=== PATIENT | male | born 1950 | race Caucasian/White ===

== ENCOUNTER → 2024-08-01 | Outpatient (CLI) | payer OTHER, SELFPAY ==
[2024-08-01 08:00] LABS: Collection Type, Urine Clean Catch
[2024-08-01 08:34] LABS: Basophils # (Auto) 0.1 Thou/mm3 (0.0-0.2); Basophils % (Auto) 1 % (0-2.5); Eosinophils # (Auto) 0.4 Thou/mm3 (0.0-0.5); Eosinophils % (Auto) 6 % (0-10); Hematocrit 36.7 % (41.0-53.0); Immature Granulocytes % (Auto) 0 % (0-0); Immature Granulocytes Auto 0.03 Thou/mm3 (0.00-0.00); Lymphocytes # (Auto) 1.2 Thou/mm3 (1.0-4.8); Lymphocytes % (Auto) 18 % (10-50); Mean Corpuscular HGB Conc 32.7 g/dl (31.0-37.0); Mean Corpuscular Hemoglobin 27.5 pg (25.0-35.0); Mean Corpuscular Volume 84 fL (80-100); Monocytes # (Auto) 0.5 Thou/mm3 (0.0-0.8); Monocytes % (Auto) 8 % (0-12); Neutrophils # (Auto) 4.7 Thou/mm3 (1.8-7.7); Neutrophils % (Auto) 68 % (37-80); Nucleated Red Blood Cell % 0 /100 WBC (0); Platelet Count 103 Thou/mm3 (140-440); RDW Standard Deviation 42.6 fL (35.1-43.9); Red Blood Count 4.36 Miln/mm3 (4.50-5.90)
[2024-08-01 08:39] LABS: Bilirubin,Urine Negative (Negative); Blood,Urine Trace (Negative); Clarity,Urine Clear (Clear/Hazy); Color,Urine Colorless (Lt Yel-Yel); Glucose, Urine Negative (Negative); Ketones,Urine Negative (Negative); Leukocyte Esterase,Urine Negative (Negative); Nitrite,Urine Negative (Negative); PH,Urine 6.5 (5.0-7.0); Protein,Urine Trace (Neg - Trace); RBC,Urine 13 /hpf (0-3); Specific Gravity,Urine 1.011 (1.001-1.035); Squamous Epithelial Cell,Urine < 1 /hpf (0-5); Urobilinogen,Urine Negative mg/dL (0.0-1.0); WBC,Urine 4 /hpf (0-5)
[2024-08-01 08:43] LABS: Creatinine,Random Urine 46 mg/dL (30-125); Protein Total, Random Urine 24 mg/dL (1-14)
[2024-08-01 09:03] LABS: Albumin, Serum 4.3 gm/dL (3.4-4.8); Anion Gap 11 (7-16); BUN/Creatinine Ratio 18 Ratio (12-20); Blood Urea Nitrogen 38 mg/dL (9-23); Chloride 106 mMol/L (98-107); Creatinine (Component) 2.1 mg/dL (0.6-1.3); Glucose 177 mg/dL (74-106); Osmolality,Calculated 284 (275-295); Phosphorous 4.2 mg/dL (2.4-5.1); Potassium 4.8 mMol/L (3.4-5.1); Sodium 136 mMol/L (136-145); eGFR 33 See Note
[2024-08-01 09:14] LABS: Parathyroid Hormone Intact 135.2 pg/ml (18.5-88.0)
[2024-08-01 09:37] LABS: Hepatitis A Antibody IgM Non Reactive (Non React); Hepatitis B Core Antibody IgM Non Reactive (Non React); Hepatitis B Surface Ab NonReact(Not Immune) (Immune); Hepatitis B Surface Antigen Non Reactive (Non React); Hepatitis C Antibody Non Reactive (Non React); Vitamin D 25 Hydroxy Total 29.5 ng/mL (7.3-40.2)
== END | disposition home or self-care (01) ==
PROVIDERS: PCP Family Medicine; Referring Provider Internal Medicine; Visit Provider Internal Medicine
DX: I12.9 Hypertensive chronic kidney disease with stage 1 through stage 4 chronic kidney disease, or unspecified chronic kidney disease (principal); E11.22 Type 2 diabetes mellitus with diabetic chronic kidney disease; N18.32 Chronic kidney disease, stage 3b; E11.65 Type 2 diabetes mellitus with hyperglycemia
CPT/HCPCS: 36415; 80069; 80074; 81001; 82306; 82570; 83970; 84156; 85025; 86706; 87086

== ENCOUNTER → 2024-08-07 | Outpatient (CLI) | payer OTHER, SELFPAY ==
--- NOTE | 2024-08-07 10:30 | XR_ITS ---
Examination: Abdomen sonogram, complete Date and time of exam: August 07, 2024 1034 hours INDICATIONS: Generalized abdominal pain beginning 3 months ago. Technique: Multiple real-time grayscale transabdominal sonographic images of the abdomen have been obtained. Findings: Normal gallbladder Normal common bile duct 0.3 cm Pancreatic head 2.6 cm Aorta not enlarged Liver 17 cm fatty infiltration smooth contour no focal liver lesions Normal hepatopedal portal venous flow Patent IVC Right kidney 10.0 x 5.2 x 4.7 cm renal cortex 1.2 cm Left kidney 11.1 x 4.5 x 5.5 cm cortex 1.2 cm No hydronephrosis Moderate bilateral renal parenchymal scar formation Spleen 11.4 cm IMPRESSION: Normal gallbladder Normal common bile duct Mild hepatomegaly fatty liver Bilateral renal cortical thinning Moderate bilateral renal parenchymal scar formation
== END | disposition home or self-care (01) ==
PROVIDERS: PCP Family Medicine; Referring Provider Family Medicine; Visit Provider Family Medicine
DX: K76.0 Fatty (change of) liver, not elsewhere classified (principal); N28.89 Other specified disorders of kidney and ureter
CPT/HCPCS: 76700

== ENCOUNTER → 2024-08-23 | Outpatient (CLI) | payer OTHER, SELFPAY ==
[2024-08-23 13:26] LABS: Albumin, Serum 4.6 gm/dL (3.4-4.8); Anion Gap 9 (7-16); BUN/Creatinine Ratio 16 Ratio (12-20); Blood Urea Nitrogen 31 mg/dL (9-23); Calcium 9.3 mg/dL (8.3-10.6); Calcium (Corrected) 9.3 mg/dL (8.5-10.1); Carbon Dioxide 20.6 mMol/L (20.0-31.0); Chloride 110 mMol/L (98-107); Creatinine (Component) 1.9 mg/dL (0.6-1.3); Glucose 115 mg/dL (74-106); Osmolality,Calculated 286 (275-295); Sodium 140 mMol/L (136-145); eGFR 37 See Note
== END | disposition home or self-care (01) ==
LOC: COPL 12:07
PROVIDERS: PCP Family Medicine; Referring Provider Internal Medicine; Visit Provider Internal Medicine
DX: I12.9 Hypertensive chronic kidney disease with stage 1 through stage 4 chronic kidney disease, or unspecified chronic kidney disease (principal); E11.22 Type 2 diabetes mellitus with diabetic chronic kidney disease; N18.32 Chronic kidney disease, stage 3b
CPT/HCPCS: 36415; 80069

== ENCOUNTER → 2024-10-17 | Outpatient (CLI) | payer OTHER, SELFPAY ==
[2024-10-17 15:25] LABS: Basophils % (Auto) 1 % (0-2.5); Eosinophils # (Auto) 0.4 Thou/mm3 (0.0-0.5); Eosinophils % (Auto) 7 % (0-10); Hematocrit 38.3 % (41.0-53.0); Hemoglobin 12.8 g/dL (13.5-16.0); Immature Granulocytes % (Auto) 0 % (0-0); Immature Granulocytes Auto 0.02 Thou/mm3 (0.00-0.00); Lymphocytes % (Auto) 18 % (10-50); Mean Corpuscular HGB Conc 33.4 g/dl (31.0-37.0); Mean Corpuscular Hemoglobin 27.6 pg (25.0-35.0); Mean Corpuscular Volume 83 fL (80-100); Monocytes # (Auto) 0.3 Thou/mm3 (0.0-0.8); Monocytes % (Auto) 6 % (0-12); Neutrophils # (Auto) 3.9 Thou/mm3 (1.8-7.7); Neutrophils % (Auto) 69 % (37-80); Nucleated Red Blood Cell % 0 /100 WBC (0); Platelet Count 113 Thou/mm3 (140-440); RDW Standard Deviation 44.2 fL (35.1-43.9); Red Blood Count 4.64 Miln/mm3 (4.50-5.90); White Blood Count 5.7 Thou/mm3 (3.8-10.6)
[2024-10-17 16:42] LABS: Albumin, Serum 4.3 gm/dL (3.4-4.8); Anion Gap 12 (7-16); BUN/Creatinine Ratio 11 Ratio (12-20); Blood Urea Nitrogen 19 mg/dL (9-23); Calcium 9.3 mg/dL (8.3-10.6); Calcium (Corrected) 9.3 mg/dL (8.5-10.1); Carbon Dioxide 20.4 mMol/L (20.0-31.0); Chloride 106 mMol/L (98-107); Creatinine (Component) 1.7 mg/dL (0.6-1.3); Glucose 90 mg/dL (74-106); Osmolality,Calculated 277 (275-295); Phosphorous 4.1 mg/dL (2.4-5.1); Potassium 4.8 mMol/L (3.4-5.1); Sodium 138 mMol/L (136-145); eGFR 42 See Note
== END | disposition home or self-care (01) ==
LOC: COPL 14:45
PROVIDERS: PCP Family Medicine; Referring Provider Internal Medicine; Visit Provider Internal Medicine
DX: I12.9 Hypertensive chronic kidney disease with stage 1 through stage 4 chronic kidney disease, or unspecified chronic kidney disease (principal); E11.22 Type 2 diabetes mellitus with diabetic chronic kidney disease; N18.32 Chronic kidney disease, stage 3b; E11.65 Type 2 diabetes mellitus with hyperglycemia; R80.9 Proteinuria, unspecified; E55.9 Vitamin D deficiency, unspecified
CPT/HCPCS: 36415; 80069; 85025

== ENCOUNTER → 2024-12-06 | Outpatient (CLI) | payer OTHER, SELFPAY ==
[2024-12-06 14:24] LABS: Glucose Estimated Average 108 mg/dL (80-131); Hemoglobin A1C 5.4 % Hgb (4.8-6.0)
[2024-12-06 14:28] LABS: Alanine Aminotransferase 18 U/L (10-49); Albumin, Serum 4.5 gm/dL (3.4-4.8); Alkaline Phosphatase 59 U/L (46-116); Anion Gap 9 (7-16); Aspartate Amino Transferase 20 U/L (0-34); BUN/Creatinine Ratio 14 Ratio (12-20); Bilirubin,Total 0.6 mg/dL (0.3-1.2); Blood Urea Nitrogen 27 mg/dL (9-23); Carbon Dioxide 21.1 mMol/L (20.0-31.0); Chloride 108 mMol/L (98-107); Creatinine (Component) 1.9 mg/dL (0.6-1.3); Globulin 2.3 gm/dL (2.3-3.5); Glucose 107 mg/dL (74-106); Osmolality,Calculated 280 (275-295); Potassium 4.5 mMol/L (3.4-5.1); Sodium 138 mMol/L (136-145); Total Protein 6.8 gm/dL (5.7-8.2); eGFR 37 See Note
== END | disposition home or self-care (01) ==
LOC: COPL 12:56
PROVIDERS: PCP Family Medicine; Referring Provider Family Medicine; Visit Provider Family Medicine
DX: E11.65 Type 2 diabetes mellitus with hyperglycemia (principal); I10 Essential (primary) hypertension
CPT/HCPCS: 36415; 80053; 83036

== ENCOUNTER → 2024-12-16 | Outpatient (CLI) | payer OTHER, SELFPAY ==
[2024-12-16 11:43] LABS: Alanine Aminotransferase 22 U/L (10-49); Albumin, Serum 4.2 gm/dL (3.4-4.8); Alkaline Phosphatase 62 U/L (46-116); Aspartate Amino Transferase 24 U/L (0-34); Bilirubin,Direct 0.2 mg/dL (0.0-0.3); Bilirubin,Total 0.4 mg/dL (0.3-1.2); Cardiac Risk Estimate 2.8 RATIO (4.0-6.7); Cholesterol 98 mg/dL (132-200); HDL Cholesterol 35 mg/dL (40-60); LDL Cholesterol,Calculated 34 mg/dL (0-130); Total Protein 6.2 gm/dL (5.7-8.2); Triglycerides 143 mg/dL (30-150)
== END | disposition home or self-care (01) ==
LOC: COPL 10:28
PROVIDERS: PCP Family Medicine; Referring Provider Internal Medicine Cardiovascular Disease; Visit Provider Internal Medicine Cardiovascular Disease
DX: E78.00 Pure hypercholesterolemia, unspecified (principal)
CPT/HCPCS: 36415; 80061; 80076

== ENCOUNTER → 2024-12-25 | Outpatient (CLI) | payer OTHER, SELFPAY ==
[2024-12-25 10:57] LABS: Albumin, Serum 4.2 gm/dL (3.4-4.8); Anion Gap 11 (7-16); BUN/Creatinine Ratio 11 Ratio (12-20); Blood Urea Nitrogen 20 mg/dL (9-23); Carbon Dioxide 21.8 mMol/L (20.0-31.0); Chloride 108 mMol/L (98-107); Creatinine (Component) 1.8 mg/dL (0.6-1.3); Glucose 110 mg/dL (74-106); Osmolality,Calculated 284 (275-295); Phosphorous 3.9 mg/dL (2.4-5.1); Potassium 4.6 mMol/L (3.4-5.1); Sodium 141 mMol/L (136-145); eGFR 39 See Note
== END | disposition home or self-care (01) ==
LOC: COPL 09:58
PROVIDERS: PCP Family Medicine; Referring Provider Internal Medicine; Visit Provider Internal Medicine
DX: I12.9 Hypertensive chronic kidney disease with stage 1 through stage 4 chronic kidney disease, or unspecified chronic kidney disease (principal); E11.22 Type 2 diabetes mellitus with diabetic chronic kidney disease; N18.32 Chronic kidney disease, stage 3b; E11.65 Type 2 diabetes mellitus with hyperglycemia; R80.9 Proteinuria, unspecified; E55.9 Vitamin D deficiency, unspecified
CPT/HCPCS: 36415; 80069

== ENCOUNTER → 2024-12-27 | Outpatient (CLI) | payer OTHER, SELFPAY ==
[2024-12-27 14:19] LABS: Collection Type, Urine Clean Catch
[2024-12-27 16:23] LABS: Bilirubin,Urine Negative (Negative); Blood,Urine Negative (Negative); Clarity,Urine Clear (Clear/Hazy); Color,Urine Lt-Yellow (Lt Yel-Yel); Glucose, Urine Negative (Negative); Ketones,Urine Trace (Negative); Leukocyte Esterase,Urine Negative (Negative); Nitrite,Urine Negative (Negative); Protein,Urine Trace (Neg - Trace); RBC,Urine 1 /hpf (0-3); Specific Gravity,Urine 1.015 (1.001-1.035); Squamous Epithelial Cell,Urine 2 /hpf (0-5); Urobilinogen,Urine Negative mg/dL (0.0-1.0); WBC,Urine 2 /hpf (0-5)
== END | disposition home or self-care (01) ==
LOC: SLDO 13:58
PROVIDERS: Referring Provider Family Medicine; Visit Provider Family Medicine
DX: N39.0 Urinary tract infection, site not specified (principal)
CPT/HCPCS: 81001; 87086

== ENCOUNTER 2025-01-07 10:25 | Emergency (ER) | payer OTHER, SELFPAY ==
[2025-01-07] VITALS (8 sets, daily range): BP systolic 94–145; BP diastolic 58–105; PULSE 66–88; RESP 12–20; TEMP 36.6–36.9; O2SAT 94–98; BMI 29.6; BMI 28.8
--- NOTE | 2025-01-07 10:37 | PD.EDRME ---
Rapid Medical Screening Exam [facility] Arrival date/time: 01/07/25 10:25 74-year-old male with a history of BPH, presents to the emergency room with a chief complaint of blood in the urine. Patient states he self catheterized himself last night due to urinary retention and since then has been bleeding from the urethra. I have greeted and performed a focused initial assessment of this patient. A comprehensive ED assessment and evaluation of the patient, analysis of all test results, and completion of the medical decision making process will be conducted by additional ED providers. Chief Complaint: Urogenital-Male Vital signs: Vital Signs Temperature 98 F 01/07/25 10:33 Pulse Rate 88 01/07/25 10:33 Respiratory Rate 18 01/07/25 10:33 Blood Pressure 94/58 L 01/07/25 10:33 Pulse Oximetry (%) 97 01/07/25 10:33 Oxygen Delivery Method Room Air 01/07/25 10:33 Vital signs reviewed by provider: Yes
--- NOTE | 2025-01-07 11:06 | EDNOTE_ITS ---
<Statement entered by Jeane Tripp MD - 01/08/25 18:36> As co-signing physician, I was present and available for consult prn. I concur with the plan and care as documented by the midlevel provider. ED Male Genitalurinary RME/HPI General Chief complaint: Urogenital-Male Stated complaint: PEEING BLOOD AFTER SELF CATH TODAY AT 0830 Time Seen by Provider: 01/07/25 11:06 Arrival date/time: 01/07/25 10:25 Limitations: no limitations RME / HPI RME / HPI Narrative: 01/07/25 10:25 74-year-old male with a history of BPH, presents to the emergency room with a chief complaint of blood in the urine. Patient states he self catheterized himself last night due to urinary retention and since then has been bleeding from the urethra. I have greeted and performed a focused initial assessment of this patient. A comprehensive ED assessment and evaluation of the patient, analysis of all test results, and completion of the medical decision making process will be conducted by additional ED providers. 74-year-old male with a history of BPH, presents to the emergency room with a chief complaint of blood in the urine. Patient states he self catheterized himself last night due to urinary retention and since then has been bleeding from the urethra. Sees Dr. Harris for similar. Has not had surgery with him or procedures since 2019. Unable to follow-up with him until April 03, 2025. hx of urethral stricture in past. Thinks the excessive bleeding may be from blood thinner use. Patient is on Plavix and aspirin. He is not on Coumadin Xarelto or Eliquis. On antiplatelet medication for history of coronary stents. Does not feel fever states maybe slight chills. Was seen by PCP 2 weeks ago started on Cipro prophylactically but a week ago had repeat UA and was discontinued off Cipro. States was told there was no bacteria in his bladder. 4 years ago required a suprapubic cath. Thinks he may need placement of a suprapubic cath. At this time takes Flomax 0.4 mg once a day. Related Data Home Medications ?Medication ?Instructions ?Recorded ?Confirmed metformin 500 mg tablet 500 mg PO BID #0 tabs 08/28/18 (Glucophage) fenofibrate 160 mg tablet (Lofibra) 160 mg PO QDAY #0 tabs 02/09/16 08/28/18 vitamin E 268 mg (400 unit) capsule 400 unit PO QDAY # 0 caps 02/09/16 08/28/18 cholecalciferol (vitamin D3) 10 400 unit PO QDAY #0 ta bs 02/15/17 08/28/18 mcg (400 unit) tablet (Vitamin D3) ascorbic acid (vitamin C) 1,000 mg 1,000 mg PO Q12H 08/28/18 tablet,extended release (Vitamin C ER) ascorbic acid 125 mg-collagen, 4 cap PO BID 09/12/17 0 08/28/18 hydrolyzed 740 mg capsule (Collagen Plus Vitamin C) estradiol 2 mg tablet 2 tab PO QDAY 09/12/1708/28 omega-3 360 jh-xae-qms-fish oil 2 cap PO BID 09/12/17 08/28/18 1,200 mg capsule,delayed release (Fish Oil) Previous Rx's ?Medication ?Instructions ?Recorded [place] 7.5 mg-325 mg tablet 1 tab PO Q6H PRN pain #20 t abs 09/13/17 (hydrocodone-acetaminophen) dexamethasone 6 mg tablet 6 mg PO QDAY #10 tabs promethazine-DM 6.25 mg-15 mg/5 mL 5 ml PO Q4H PRN cou gh #473 mL 03/18/21 oral syrup ticagrelor 90 mg tablet (Brilinta) 90 mg PO BID #30 ta bs 08/31/22 Allergies Allergy/AdvReac Type Severity Reaction Status Date / Time erythromycin base Allergy Severe HIVES, Verified 01/07/25 10:28 JOINT SWELLING Review of Systems Review of Systems Systems Reviewed: All systems reviewed, normal except as documented Constitutional Constitutional: Denies fever(s) Gastrointestinal Gastrointestinal: Reports as per HPI Genitourinary Genitourinary: Reports as per HPI Musculoskeletal Musculoskeletal: Reports as per HPI ED Exam General Limitations: Present no limitations General appearance: Present alert and in no apparent distress Head Head exam: Present atraumatic Eye Eye exam: Present normal appearance, PERRL and EOMI ENT ENT exam: Present normal exam, normal oropharynx and mucous membranes moist Neck Neck exam: Present normal inspection, full ROM and trachea midline Chest Chest inspection: Present normal inspection and symmetric chest wall rise Respiratory Respiratory exam: Present normal lung sounds bilaterally Cardiovascular Cardiovascular exam: Present regular rate, normal rhythm and normal heart sounds Abdominal Exam Abdominal exam: Present soft, tenderness (suprapubic area) and normal bowel sounds exam: Present circumcised (Gross blood from urethral opening noted, with some urine dribble noted); Absent testicular tenderness, urethral discharge or scrotal swelling Extremities Exam Extremities exam: Present normal inspection and full ROM Back Exam Back exam: Present normal inspection and full ROM Neurological Exam Neurological exam: Present alert, oriented X3 and CN II-XII intact Psychiatric Psychiatric exam: Present normal affect and normal mood Skin Skin exam: Present warm, dry, intact and normal color Course Quality Measures none Orders Category Date Time Status Bladder Scan NEEDED Care 01/07/25 18:[address] Screening NOW Care 01/07/25 11:22 Completed Almaguer [Urinary Catheter] QS Care 01/07/25 11:23 Completed Insert IV NOW Care 01/07/25 11:20 Completed Transfer to another facility [Transfer/Discharge] Stat Discharge 01/07/25 16:[address] abdomen pelvis w con Stat Exams 01/07/25 11:20 Completed CBC Stat Lab 01/07/25 11:55 Completed CBC Stat Lab 01/07/25 14:27 Completed CMP [Comprehensive Metabolic Panel] Stat Lab 01/07/25 11:55 Completed Lipase Stat Lab 01/07/25 11:55 Completed PT [Prothrombin Time with INR] Stat Lab 01/07/25 11:55 Completed PTT [Partial Thromboplastin Time] Stat Lab 01/07/25 11:55 Completed Type and Screen Stat Lab 01/07/25 11:55 Completed UA [Urinalysis] Stat Lab 01/07/25 15:15 Completed Urine Culture Stat Lab 01/07/25 15:15 Received Finasteride [Proscar] Med 01/07/25 15:14 Discontinued 5 mg PO X1 ONE HYDROcodone*/APAP 5/325 [Branchland 5/325] Med 01/07/25 14:25 Discontinued 1 tab PO X1 ONE Lidocaine Jelly 2% Urojet [Xylocaine Jelly 2% Urojet] Med 01/07/25 13:00 Discontinued See Dose Instructions TOP X1 ONE Sodium Chloride 0.9% 1000 ml [Ns] 1,000 ml Med 01/07/25 11:22 Discontinued IV 999 mls/hr cefTRIAXone/D5w 1gm IV premix [Rocephin/D5w 1gm IV Med 01/07/25 14:16 Discontinued premix] 1 gm in 50 ml IV X1 oxyCODONE/APAP 5/325 [Percocet 5/325] Med 01/07/25 19:02 Discontinued 1 tab PO X1 ONE Vital Signs Vital signs: Vital Signs Temperature 98 F 01/07/25 10:33 Pulse Rate 88 01/07/25 10:33 Respiratory Rate 18 01/07/25 10:33 Blood Pressure 94/58 L 01/07/25 10:33 Pulse Oximetry (%) 97 01/07/25 10:33 Oxygen Delivery Method Room Air 01/07/25 10:33 Urogenital - Male MDM Narrative MDM Narrative:: 74-year-old male with history of urinary retention usually able to self cath however unable to this morning. Attempts in the ER with Almaguer, Uro-Jet and coud? without success. During procedure he was noted to have large clots coming out. Throughout his stay was slightly voiding however over the last 1 hour no longer able to void despite more than 4 attempts. Given large hematuria and difficulty inserting a Almaguer we will move forward with attempt to transfer for placement of Almaguer versus suprapubic cath at higher acuity hospital with urological services available. Patient data External records reviewed:: [facility] previous records Clinical information provided by:: patient and family Social determinants that could affect healthcare access:: other (specify) (Elderly gentleman requiring assistance today) Patient has the following chronic illnesses:: bph, self cath How is presenting disease/condition affected by chronic disease/condition?: exacerbated by Evaluation data The following diagnostics were reviewed and interpreted by me:: lab results and radiology exam(s) Lab and/or radiology exams considered but not ordered:: Chest x-ray considered however unlikely to change the course of treatment today given the complaint is urological in nature Interpretation Summary: CBC, CMP, UA CT scan shows Medications / Prescriptions Medications or Prescriptions considered but not ordered:: Pain medicines were considered however patient declined did not think necessary at this time Medication administrations:: Medication Administration History Discontinued Medications Hydrocodone Bitart/Acetaminophen (Hydrocodone/Apap 5/325 Tablet) 1 tab PO X1 ONE Stop: 01/07/25 14:26 Last Admin: 01/07/25 15:06 Dose: 1 tab Documented By: GAVIN Finasteride (Finasteride 5 Mg Tablet) 5 mg PO X1 ONE Stop: 01/07/25 15:15 Last Admin: 01/07/25 15:44 Dose: 5 mg Documented By: ROSARIO Sodium Chloride (Ns) 1,000 mls @ 999 mls/hr IV .Q1H1M ONE Stop: 01/07/25 12:22 Last Infusion: 01/07/25 13:09 Dose: Infused Documented By: Admin: 01/07/25 12:31 Dose: 999 mls/hr Documented By: ROSARIO Ceftriaxone Sodium/Dextrose (Rocephin/D5w 1gm Iv Premix) 1 gm in 50 mls @ 100 mls/hr IV X1 ONE Stop: 01/07/25 14:45 Last Infusion: 01/07/25 15:40 Dose: Infused Documented By: Admin: 01/07/25 15:07 Dose: 100 mls/hr Documented By: GAVIN Lidocaine HCl (Lidocaine Jelly 2% (Urojet) 10 Ml Tube) 0 ml TOP X1 ONE Stop: 01/07/25 13:01 Last Admin: 01/07/25 13:03 Dose: 10 ml Documented By: ROSARIO Oxycodone/Acetaminophen (Oxycodone/Apap 5/325 Tablet) 1 tab PO X1 ONE Stop: 01/07/25 19:03 Last Admin: 01/07/25 19:30 Dose: 1 tab Documented By: CHRIS See above Consultations Consultation(s) initiated? (list below): No Consultation #1 (Physician, Specialty, Details): [address] Stephen plan to transfer pt for placement of suprapubic cath Consultation #2 (Physician, Specialty, Details): 1629 called transfer nurse to begin attempt to transfer pt to higher acuity care center 1735 call back from [place] transfer nurse tatiana leija would like us to call pts urologist in attempt to keep pt here at [facility] for procedure [address] Harris, does not take call, agrees with plan to transfer for placement of suprapubic cath 175 spoke with Jenny from [facility] presented Case was discussed with urology There and call us back [address] Rhodes will accept pt ER to ER, with plan to place suprapubic cath in AM. recommends Bladder scan as well prior to transfer but graciously accepted. Diagnosis Urogenital Male Differential Diagnosis: urinary tract infection, urethritis, prostatitis and acute retention of urine Most likely diagnosis given after review of the tests above:: hematuria secondary to bph Admission Indicated Admission indicated?: indicated Admission Request Was there a request for admission?: No Disposition Plan Disposition Plan: Transfer Discharge Plan Plan Patient Disposition: [facility] Facility Pt Being Transferred to: [facility] Service Needed for Transfer: Urology Discharge Disposition comment: transfer ER to ER for urology services with Dr. rhodes Prescriptions/Referrals Prescriptions/Med Rec: No Action metformin [Glucophage] 500 MG tablet 500 mg PO BID Qty: 0 fenofibrate [Lofibra] 160 MG tablet 160 mg PO QDAY Qty: 0 vitamin E 400 UNIT capsule 400 unit PO QDAY Qty: 0 cholecalciferol (vitamin D3) [Vitamin D3] 400 UNIT tablet 400 unit PO QDAY Qty: 0 estradiol 2 mg Tablet 2 tab PO QDAY omega 2-vix-qjg-fish oil [Fish Oil] 360-1,200 mg Capsule,Delayed Release(Dr/Ec) 2 cap PO BID ascorbic acid-collagen [Collagen Plus Vitamin C] 125-740 mg Capsule 4 cap PO BID ascorbic acid (vitamin C) [Vitamin C] 1,000 mg Tablet Extended Release 1,000 mg PO Q12H hydrocodone-acetaminophen [[place]] 7.5-325 mg tablet 1 tab PO Q6H MDD 4 PRN (Reason: pain) Qty: 20 0RF dexamethasone 6 mg tablet 6 mg PO QDAY Qty: 10 0RF promethazine-DM 6.25-15 mg/5 mL syrup 5 ml PO Q4H PRN (Reason: cough) Qty: 473 0RF Brilinta 90 mg Tablet 90 mg PO BID Qty: 30 0RF Referrals: Ai Garcia MD [Primary Care Provider] - In 1 week Problem List Clinical Impression: Urinary retention, Benign prostatic hyperplasia (BPH) with post-void dribbling, Hematuria Patient/Caregiver Discharge Instructions Print Language: Czech Stand Alone Forms: Trena Award Info., Patient Portal Info Letter PA/TENT WORKER Supervising Physician PA/TENT WORKER Supervising Physician: Dr. Tripp
--- NOTE | 2025-01-07 11:20 | XR_ITS ---
Examination: CT abdomen with intravenous contrast CT pelvis with intravenous contrast 2-D coronal reconstructions 2-D sagittal reconstructions Date and time of exam:January 07, 2025 1314 hours Comparison August 23, 2017. INDICATIONS: Difficulty urinating with hematuria 3 weeks CTDI: vol (mGy) 10.7 DLP: (mGycm) 707 Technique: Multiple axial sections of the abdomen and pelvis have been obtained. 64 slice high-resolution scanner used. 3 mm axial sections have been obtained, post intravenous injection 30 cc [id number] 2-D sagittal, coronal reconstructions obtained. Low dose protocols were performed. One or more of the following dose reduction techniques were used; automated exposure control, adjustment of the mA and/or KV according to patient size, use of iterative reconstruction technique. Findings: No focal liver or splenic lesions No gallstones No pancreatic or adrenal mass No renal or ureteral calculi Aorta normal size 29 mm fat-containing umbilical hernia No pericecal inflammatory change Distended urinary bladder which appears to relate to prostatomegaly, AP dimension 5.1 cm mediolateral dimension 4.9 cm No bladder mass or bladder calculi Advanced disc narrowing L2-L3, L5-S1 IMPRESSION: No renal or ureteral calculi Distended urinary bladder which may relate to prostatomegaly, AP dimension 5.1 cm lateral dimension 4.9 cm
[2025-01-07] MEDS: SODIUM CHLORIDE 0.9% 1000 ML 1,000 ML 999 ML IV (12:31)
[2025-01-07 12:38] LABS: Partial Thromboplastin Time 20.1 Seconds (22.0-36.0); Prothrombin Time 11.4 Seconds (9.0-12.2)
[2025-01-07 12:49] LABS: Alanine Aminotransferase 11 U/L (10-49); Albumin, Serum 3.9 gm/dL (3.4-4.8); Albumin/Globulin Ratio 2.2 (1.2-2.2); Alkaline Phosphatase 44 U/L (46-116); Anion Gap 16 (7-16); BUN/Creatinine Ratio 14 Ratio (12-20); Basophils % (Auto) 1 % (0-2.5); Bilirubin,Total 0.5 mg/dL (0.3-1.2); Blood Urea Nitrogen 27 mg/dL (9-23); Calcium (Corrected) 9.1 mg/dL (8.5-10.1); Carbon Dioxide 17.4 mMol/L (20.0-31.0); Chloride 108 mMol/L (98-107); Creatinine (Component) 1.9 mg/dL (0.6-1.3); Eosinophils # (Auto) 0.2 Thou/mm3 (0.0-0.5); Eosinophils % (Auto) 3 % (0-10); Estimated Creatinine Clearance 38.1 mL/min (>60); Globulin 1.8 gm/dL (2.3-3.5); Glucose 125 mg/dL (74-106); Hemoglobin 11.6 g/dL (13.5-16.0); Immature Granulocytes % (Auto) 0 % (0-0); Immature Granulocytes Auto 0.01 Thou/mm3 (0.00-0.00); Lipase 35 U/L (12-53); Lymphocytes # (Auto) 0.9 Thou/mm3 (1.0-4.8); Lymphocytes % (Auto) 13 % (10-50); Mean Corpuscular HGB Conc 34.1 g/dl (31.0-37.0); Mean Corpuscular Volume 85 fL (80-100); Monocytes # (Auto) 0.4 Thou/mm3 (0.0-0.8); Monocytes % (Auto) 6 % (0-12); Neutrophils # (Auto) 5.4 Thou/mm3 (1.8-7.7); Neutrophils % (Auto) 78 % (37-80); Nucleated Red Blood Cell % 0 /100 WBC (0); Osmolality,Calculated 287 (275-295); Platelet Count 113 Thou/mm3 (140-440); RDW Standard Deviation 43.4 fL (35.1-43.9); Sodium 141 mMol/L (136-145); Total Protein 5.7 gm/dL (5.7-8.2); White Blood Count 6.9 Thou/mm3 (3.8-10.6); eGFR 37 See Note
[2025-01-07] MEDS: LIDOCAINE JELLY 2% (Urojet) 10 ML TUBE TOP (13:03)
--- NOTE | 2025-01-07 13:04 | PC.NURSE ---
PATEL CATHETER INSERTION ATTEMPTED 3 TIMES WITH NO SUCCESS; UNABLE TO GET PATEL CATHETER. CLOTS & BLOOD COMING OUT OF PT'S PENIS NOTED.
[2025-01-07 14:41] LABS: Basophils % (Auto) 1 % (0-2.5); Eosinophils # (Auto) 0.2 Thou/mm3 (0.0-0.5); Eosinophils % (Auto) 3 % (0-10); Hematocrit 32.3 % (41.0-53.0); Hemoglobin 11.2 g/dL (13.5-16.0); Immature Granulocytes % (Auto) 0 % (0-0); Immature Granulocytes Auto 0.02 Thou/mm3 (0.00-0.00); Lymphocytes # (Auto) 0.9 Thou/mm3 (1.0-4.8); Lymphocytes % (Auto) 14 % (10-50); Mean Corpuscular HGB Conc 34.7 g/dl (31.0-37.0); Mean Corpuscular Volume 84 fL (80-100); Monocytes # (Auto) 0.3 Thou/mm3 (0.0-0.8); Monocytes % (Auto) 5 % (0-12); Neutrophils # (Auto) 4.6 Thou/mm3 (1.8-7.7); Neutrophils % (Auto) 77 % (37-80); Nucleated Red Blood Cell % 0 /100 WBC (0); Platelet Count 90 Thou/mm3 (140-440); RDW Standard Deviation 41.8 fL (35.1-43.9); Red Blood Count 3.86 Miln/mm3 (4.50-5.90)
[2025-01-07] MEDS: HYDROcodone/APAP 5/325 TABLET 1 TAB PO (15:06)
[2025-01-07] MEDS: cefTRIAXone/D5w 1gm IV premix 1 GM/50 ML BAG IV (15:07)
[2025-01-07 15:34] LABS: Collection Type, Urine Clean Catch; Squamous Epithelial Cell,Urine 0 /hpf (0-5); WBC,Urine 0 /hpf (0-5)
[2025-01-07] MEDS: FINASTERIDE 5 MG TABLET PO (15:44)
[2025-01-07 15:59] LABS: Bilirubin,Urine Negative (Negative); Blood,Urine 3+ (Negative); Color,Urine Dark-Brown (Lt Yel-Yel); Glucose, Urine Negative (Negative); Ketones,Urine Trace (Negative); Leukocyte Esterase,Urine Positive (Negative); Nitrite,Urine Negative (Negative); Protein,Urine 1+ (Neg - Trace); RBC,Urine 5596 /hpf (0-3); Specific Gravity,Urine 1.011 (1.001-1.035); Urobilinogen,Urine Negative mg/dL (0.0-1.0)
[2025-01-07 16:10] LABS: Clarity,Urine Cloudy (Clear/Hazy)
--- NOTE | 2025-01-07 17:31 | PC.CC ---
Addendum entered by Leidy Escamilla RN 01/07/25 17:57: ED Charge Queenie made aware to continue to follow up on this transfer. Addendum entered by Leidy Escamilla RN 01/07/25 17:53: 1740-packet sent and images pushed to [facility] TC, spoke to TC gave prelim info, requested to speak to ED provider FIDEL Castelan Original Note: 1625- Received transfer request for urology services 1710-packet sent to Sheyla, called TC, declined no urology 1720-packet sent to Karin Martinez, called TC, will review packet. Asked if we contacted Dr. Harris, recontaced ED FIDEL Castelan, she will call, phone # provided.
--- NOTE | 2025-01-07 18:12 | PC.NURSE ---
This specifications writer spoke with transfer center at [facility], per RN requesting more information from David Castelan. Per DAVID Castelan, transfer nurse will present case to .
--- NOTE | 2025-01-07 18:49 | PC.NURSE ---
RN spoke with Jenny at [facility] transfer center, Accepting patient, by Edwin Hale. Nurse to nurse report call [phone]
[2025-01-07] MEDS: oxyCODONE/APAP 5/325 TABLET 1 TAB PO (19:30)
--- NOTE | 2025-01-07 20:01 | PC.NURSE ---
report called to KRISTEN Fortune. ems here now. report given to EMS. pt leaving now.
== END 2025-01-07 20:14 | disposition short-term general hospital (02) ==
PROVIDERS: Nurse Practitioner Family; Physician Assistant; Emergency Provider Family Medicine; PCP Family Medicine
DX: R31.9 Hematuria, unspecified (principal); N40.1 Benign prostatic hyperplasia with lower urinary tract symptoms; R33.8 Other retention of urine; N39.43 Post-void dribbling; Z75.1 Person awaiting admission to adequate facility elsewhere
CPT/HCPCS: 36415; 74177; 80053; 81001; 83690; 85025; 85610; 85730; 86850; 86900; 86901; 87086; 96361; 96365; 99285; A4649; J0696; J7030; Q9967; A9270

== ENCOUNTER → 2025-01-15 | Outpatient (CLI) | payer OTHER, SELFPAY ==
[2025-01-15 16:18] LABS: Collection Type, Urine Clean Catch
[2025-01-15 16:34] LABS: Basophils # (Auto) 0.1 Thou/mm3 (0.0-0.2); Basophils % (Auto) 1 % (0-2.5); Eosinophils # (Auto) 0.5 Thou/mm3 (0.0-0.5); Eosinophils % (Auto) 6 % (0-10); Hematocrit 33.5 % (41.0-53.0); Hemoglobin 11.2 g/dL (13.5-16.0); Immature Granulocytes % (Auto) 1 % (0-0); Immature Granulocytes Auto 0.04 Thou/mm3 (0.00-0.00); Lymphocytes # (Auto) 1.2 Thou/mm3 (1.0-4.8); Lymphocytes % (Auto) 15 % (10-50); Mean Corpuscular HGB Conc 33.4 g/dl (31.0-37.0); Mean Corpuscular Hemoglobin 29.2 pg (25.0-35.0); Mean Corpuscular Volume 87 fL (80-100); Monocytes # (Auto) 0.5 Thou/mm3 (0.0-0.8); Monocytes % (Auto) 6 % (0-12); Neutrophils # (Auto) 6.1 Thou/mm3 (1.8-7.7); Neutrophils % (Auto) 72 % (37-80); Nucleated Red Blood Cell % 0 /100 WBC (0); Platelet Count 151 Thou/mm3 (140-440); RDW Standard Deviation 45.8 fL (35.1-43.9); Red Blood Count 3.84 Miln/mm3 (4.50-5.90); White Blood Count 8.5 Thou/mm3 (3.8-10.6)
[2025-01-15 16:41] LABS: Bilirubin,Urine Negative (Negative); Blood,Urine 3+ (Negative); Clarity,Urine Clear (Clear/Hazy); Color,Urine Lt-Yellow (Lt Yel-Yel); Glucose, Urine Negative (Negative); Ketones,Urine Negative (Negative); Leukocyte Esterase,Urine Negative (Negative); Nitrite,Urine Negative (Negative); Protein,Urine Trace (Neg - Trace); RBC,Urine 274 /hpf (0-3); Specific Gravity,Urine 1.018 (1.001-1.035); Squamous Epithelial Cell,Urine 3 /hpf (0-5); Urobilinogen,Urine Negative mg/dL (0.0-1.0); WBC,Urine 6 /hpf (0-5)
[2025-01-15 17:02] LABS: Alanine Aminotransferase 22 U/L (10-49); Albumin, Serum 4.2 gm/dL (3.4-4.8); Albumin/Globulin Ratio 2.2 (1.2-2.2); Alkaline Phosphatase 63 U/L (46-116); Anion Gap 9 (7-16); Aspartate Amino Transferase 17 U/L (0-34); BUN/Creatinine Ratio 16 Ratio (12-20); Bilirubin,Total 0.3 mg/dL (0.3-1.2); Blood Urea Nitrogen 29 mg/dL (9-23); Carbon Dioxide 22.1 mMol/L (20.0-31.0); Chloride 110 mMol/L (98-107); Creatinine (Component) 1.8 mg/dL (0.6-1.3); Globulin 1.9 gm/dL (2.3-3.5); Glucose 126 mg/dL (74-106); Osmolality,Calculated 289 (275-295); Potassium 4.7 mMol/L (3.4-5.1); Sodium 141 mMol/L (136-145); Thyroid Stimulating Hormone 1.51 uIU/mL (0.55-4.78); Total Protein 6.1 gm/dL (5.7-8.2); eGFR 39 See Note
== END | disposition home or self-care (01) ==
LOC: COPL 15:54
PROVIDERS: PCP Student in an Organized Health Care Education/Training Program; Referring Provider Student in an Organized Health Care Education/Training Program; Visit Provider Student in an Organized Health Care Education/Training Program
DX: N39.0 Urinary tract infection, site not specified (principal); R53.83 Other fatigue
CPT/HCPCS: 36415; 80053; 81001; 84443; 85025; 87086

== ENCOUNTER → 2025-02-07 | Outpatient (CLI) | payer OTHER, SELFPAY ==
[2025-02-07 16:24] LABS: Basophils # (Auto) 0.1 Thou/mm3 (0.0-0.2); Basophils % (Auto) 1 % (0-2.5); Eosinophils # (Auto) 0.5 Thou/mm3 (0.0-0.5); Eosinophils % (Auto) 7 % (0-10); Hematocrit 37.0 % (41.0-53.0); Hemoglobin 12.0 g/dL (13.5-16.0); Immature Granulocytes Auto 0.05 Thou/mm3 (0.00-0.00); Lymphocytes # (Auto) 1.1 Thou/mm3 (1.0-4.8); Lymphocytes % (Auto) 15 % (10-50); Mean Corpuscular HGB Conc 32.4 g/dl (31.0-37.0); Mean Corpuscular Hemoglobin 28.9 pg (25.0-35.0); Mean Corpuscular Volume 89 fL (80-100); Monocytes # (Auto) 0.5 Thou/mm3 (0.0-0.8); Monocytes % (Auto) 7 % (0-12); Neutrophils # (Auto) 5.1 Thou/mm3 (1.8-7.7); Neutrophils % (Auto) 70 % (37-80); Nucleated Red Blood Cell # 0.00 Thou/mm3 (0.00-0.00); Nucleated Red Blood Cell % 0 /100 WBC (0); Platelet Count 136 Thou/mm3 (140-440); RDW Standard Deviation 45.3 fL (35.1-43.9); Red Blood Count 4.15 Miln/mm3 (4.50-5.90); White Blood Count 7.4 Thou/mm3 (3.8-10.6)
[2025-02-07 16:47] LABS: Alanine Aminotransferase 12 U/L (10-49); Albumin, Serum 4.3 gm/dL (3.4-4.8); Albumin/Globulin Ratio 1.9 (1.2-2.2); Alkaline Phosphatase 71 U/L (46-116); Anion Gap 11 (7-16); Aspartate Amino Transferase 15 U/L (0-34); BUN/Creatinine Ratio 13 Ratio (12-20); Bilirubin,Total 0.3 mg/dL (0.3-1.2); Blood Urea Nitrogen 28 mg/dL (9-23); Calcium 9.0 mg/dL (8.3-10.6); Calcium (Corrected) 9.0 mg/dL (8.5-10.1); Carbon Dioxide 23.4 mMol/L (20.0-31.0); Chloride 108 mMol/L (98-107); Creatinine (Component) 2.1 mg/dL (0.6-1.3); Globulin 2.3 gm/dL (2.3-3.5); Glucose 127 mg/dL (74-106); Osmolality,Calculated 290 (275-295); Potassium 4.9 mMol/L (3.4-5.1); Sodium 142 mMol/L (136-145); Total Protein 6.6 gm/dL (5.7-8.2); eGFR 33 See Note
== END | disposition home or self-care (01) ==
LOC: COPL 15:16
PROVIDERS: PCP Nurse Practitioner Family; Referring Provider Nurse Practitioner Family; Visit Provider Nurse Practitioner Family
DX: Z01.89 Encounter for other specified special examinations (principal); R50.81 Fever presenting with conditions classified elsewhere
CPT/HCPCS: 36415; 80053; 85025

== ENCOUNTER → 2025-02-10 | Outpatient (CLI) | payer OTHER, SELFPAY | END | disposition home or self-care (01) | LOC: SLDO 14:49 | PROVIDERS: Referring Provider Nurse Practitioner Family; Visit Provider Nurse Practitioner Family | DX: N39.0 Urinary tract infection, site not specified (principal) | CPT/HCPCS: 87077; 87086; 87186 ==

== ENCOUNTER → 2025-03-26 | Outpatient (CLI) | payer OTHER, SELFPAY ==
[2025-03-26 15:22] LABS: Basophils # (Auto) 0.1 Thou/mm3 (0.0-0.2); Basophils % (Auto) 1 % (0-2.5); Eosinophils # (Auto) 0.5 Thou/mm3 (0.0-0.5); Eosinophils % (Auto) 7 % (0-10); Hematocrit 38.1 % (41.0-53.0); Hemoglobin 12.0 g/dL (13.5-16.0); Immature Granulocytes Auto 0.03 Thou/mm3 (0.00-0.00); Lymphocytes # (Auto) 1.3 Thou/mm3 (1.0-4.8); Lymphocytes % (Auto) 19 % (10-50); Mean Corpuscular HGB Conc 31.5 g/dl (31.0-37.0); Mean Corpuscular Hemoglobin 27.3 pg (25.0-35.0); Mean Corpuscular Volume 87 fL (80-100); Monocytes # (Auto) 0.4 Thou/mm3 (0.0-0.8); Monocytes % (Auto) 6 % (0-12); Neutrophils # (Auto) 4.7 Thou/mm3 (1.8-7.7); Neutrophils % (Auto) 66 % (37-80); Nucleated Red Blood Cell # 0.00 Thou/mm3 (0.00-0.00); Nucleated Red Blood Cell % 0 /100 WBC (0); Platelet Count 131 Thou/mm3 (140-440); RDW Standard Deviation 45.5 fL (35.1-43.9); Red Blood Count 4.39 Miln/mm3 (4.50-5.90); White Blood Count 7.0 Thou/mm3 (3.8-10.6)
[2025-03-26 15:41] LABS: Albumin, Serum 4.2 gm/dL (3.4-4.8); Anion Gap 8 (7-16); BUN/Creatinine Ratio 21 Ratio (12-20); Blood Urea Nitrogen 40 mg/dL (9-23); Calcium 9.5 mg/dL (8.3-10.6); Calcium (Corrected) 9.5 mg/dL (8.5-10.1); Carbon Dioxide 23.6 mMol/L (20.0-31.0); Chloride 110 mMol/L (98-107); Creatinine (Component) 1.9 mg/dL (0.6-1.3); Glucose 95 mg/dL (74-106); Osmolality,Calculated 292 (275-295); Phosphorous 4.5 mg/dL (2.4-5.1); Potassium 5.0 mMol/L (3.4-5.1); Sodium 142 mMol/L (136-145); eGFR 37 See Note
[2025-03-26 15:43] LABS: Vitamin D 25 Hydroxy Total 49.8 ng/mL (7.3-40.2)
[2025-03-26 17:42] LABS: Creatinine,Random Urine 108 mg/dL (30-125); Protein Total, Random Urine 20 mg/dL (1-14)
== END | disposition home or self-care (01) ==
LOC: COPL 14:36
PROVIDERS: PCP Family Medicine; Referring Provider Internal Medicine; Visit Provider Internal Medicine
DX: I12.9 Hypertensive chronic kidney disease with stage 1 through stage 4 chronic kidney disease, or unspecified chronic kidney disease (principal); E11.22 Type 2 diabetes mellitus with diabetic chronic kidney disease; N18.32 Chronic kidney disease, stage 3b; E11.65 Type 2 diabetes mellitus with hyperglycemia; R80.9 Proteinuria, unspecified; E55.9 Vitamin D deficiency, unspecified
CPT/HCPCS: 36415; 80069; 82306; 82570; 84156; 85025

== ENCOUNTER → 2025-04-03 | Outpatient (BNVA) | payer OTHER, SELFPAY | END | disposition home or self-care (01) | PROVIDERS: PCP Family Medicine; Referring Provider Family Medicine; Visit Provider Urology | DX: N35.919 Unspecified urethral stricture, male, unspecified site (principal); I12.9 Hypertensive chronic kidney disease with stage 1 through stage 4 chronic kidney disease, or unspecified chronic kidney disease; E11.22 Type 2 diabetes mellitus with diabetic chronic kidney disease; N18.2 Chronic kidney disease, stage 2 (mild); I25.10 Atherosclerotic heart disease of native coronary artery without angina pectoris | CPT/HCPCS: 99212; G0463 ==

== ENCOUNTER → 2025-04-09 | Outpatient (CLI) | payer OTHER, SELFPAY | END | disposition home or self-care (01) | LOC: SLDO 14:05 | PROVIDERS: Referring Provider Family Medicine; Visit Provider Family Medicine | DX: L03.316 Cellulitis of umbilicus (principal) | CPT/HCPCS: 87070; 87077; 87186; 87205 ==

== ENCOUNTER 2025-04-30 06:40 | Day surgery (SDC) | payer OTHER, SELFPAY ==
--- NOTE | 2025-04-29 09:45 | EKG_ITS ---
[facility] Test Date: 2025-04-29 Pat Name: EMILE NOBLES Department: Room: - Gender: Male Change Booth Attendant: ELIDA VALDERRAMAB: 1950 Requested By: Sumanth Ling Order Number: [id number] Reading MD: Sumanth Ling Measurements Intervals [place] Rate: 73 P: 40 ID: [id number] QRS: -62 QRSD: 128 T: 57 QT: 403 QTc: 445 Interpretive Statements SINUS RHYTHM MARKED LEFT AXIS DEVIATION [QRS AXIS < -30] POSSIBLE ANTERIOR MYOCARDIAL INFARCTION , OF INDETERMINATE AGE [30 ms Q WAVE IN V3/V4, OR R < 0.2 mV IN V4] Compared to ECG 08/30/2022 12:06:32 No significant changes /store/S0/[id number]/ecg/[id number].pdf
[2025-04-29 09:53] VITALS: BMI 31.3
[2025-04-29 11:52] LABS: Alanine Aminotransferase 10 U/L (10-49); Albumin, Serum 4.4 gm/dL (3.4-4.8); Albumin/Globulin Ratio 2.2 (1.2-2.2); Alkaline Phosphatase 61 U/L (46-116); Anion Gap 9 (7-16); Aspartate Amino Transferase 15 U/L (0-34); BUN/Creatinine Ratio 12 Ratio (12-20); Bilirubin,Total 0.4 mg/dL (0.3-1.2); Blood Urea Nitrogen 23 mg/dL (9-23); Calcium 9.7 mg/dL (8.3-10.6); Calcium (Corrected) 9.7 mg/dL (8.5-10.1); Carbon Dioxide 23.3 mMol/L (20.0-31.0); Chloride 110 mMol/L (98-107); Creatinine (Component) 1.9 mg/dL (0.6-1.3); Estimated Creatinine Clearance 38.4 mL/min (>60); Globulin 2.0 gm/dL (2.3-3.5); Glucose 124 mg/dL (74-106); Osmolality,Calculated 287 (275-295); Potassium 4.8 mMol/L (3.4-5.1); Sodium 142 mMol/L (136-145); Total Protein 6.4 gm/dL (5.7-8.2); eGFR 37 See Note
--- NOTE | 2025-04-29 12:33 | SUR.PREOP ---
Cardiac records reviewed with Dr Ling.
[2025-04-30] VITALS (9 sets, daily range): BP systolic 113–156; BP diastolic 63–76; PULSE 62–80; RESP 12–17; TEMP 36.3–36.8; O2SAT 95–99; BMI 30.7
[2025-04-30] MEDS: RINGERS LACTATED 1000 ML 1,000 ML 20 ML IV (07:11)
--- NOTE | 2025-04-30 09:32 | XR_ITS ---
Examination: Fluoroscopy AP pelvis 3 views Date and time: April 30, 2025 1045 hours INDICATIONS: Fluoroscopy for urethral dilatation TECHNIQUE AND FINDINGS: Opacification of the penile urethra 3 spot fluoroscopic films of the pelvis Fluoroscopy 10.4 seconds radiation dose 1.454 milligray IMPRESSION: Fluoroscopy as above
--- NOTE | 2025-04-30 10:08 | SUR.PHASEI ---
1008 patient arrived to recovery resting comfortably in [facility], on oxygen 3L via nasal cannula, breathing unlabored, vital signs stable, denies pain, suprapubic catheter in place and secure, draining to gravity, report received from Abdiel PETERSON and Gilmar GUTIERREZ/Dr. Voss
--- NOTE | 2025-04-30 10:10 | PD.SUROPNT ---
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 Patient has BPH with urinary obstruction and LUTS he has history of dense stricture of the anterior urethra distal to the external urinary sphincter in the past he had cystoscopic examination DVIU and placement of Almaguer catheter which was subsequently removed that was about 5 years ago subsequently patient was lost to the follow-up. Patient went to the different facility in [place] and he was followed by the urologist in [place] he went into urinary retention had a placement of suprapubic cystostomy tube in [place] attempt was made to pass filiform and followers in [place] and it was not successful. Patient came to see me and I recommended cystoscopic examination possible DVIU and possible urethrogram procedure and complications were discussed with the patient in great detail informed consent is obtained Patient was brought to the operating room in a satisfactory condition after appropriate premedication was put on the operating table in a spine position. He was appropriately identified by surgeon and operating room staff site scope and indication of the procedure were reconfirmed with the patient. Patient received perioperative antibiotic next general anesthesia was given uneventfully he was positioned in a dorsal lithotomy position parts were prepped and draped in the usual sterile fashion 21 cystoscope was used to do the cystourethroscopy examination urethra revealed complete close or of the urethra distal to the external urinary sphincter. Attempt was made to pass a file and followers which failed. At this time I decided to do a cystogram under fluoroscopic examination. I took a Anne syringe with 50 cc of Cystografin and urethrogram was performed there was complete obliteration of anterior urethra no contrast passed through the stricture into the bladder. At this time procedure was aborted patient after having tolerated the procedure well was sent to recovery room in a satisfactory condition he already has a suprapubic cystostomy tube. He is given follow-up appointment in urology office he is going to be referred to tertiary care [facility] which [facility] Anesthesia GETA Pathology / specimen None Estimated Blood Loss 1 Disposition PACU Surgeon Mike Harris MD Surgical Staff Operation Date: 04/30/25 08:45 Case Staff Anesthesiologist: Ryan Voss
--- NOTE | 2025-04-30 11:15 | SUR.OPER ---
Late note: Patient has existing suprapubic cather in situ. Suprapubic cather was not removed by staff or surgeon.
--- NOTE | 2025-04-30 11:35 | SUR.PHASEII ---
1135 Patient meets discharge criteria from recovery, awake and alert, breathing unlabored, vital signs stable, denies pain, ate a jello and drinking 7up; denies nausea, able to dress himself into his clothing, discharge instructions given to patient and patient daughter, daughter signed discharge instructions. Patient given all her belongings prior to discharge, transported via wheelchair and left in a private vehicle.
== END 2025-04-30 11:35 | disposition home or self-care (01) ==
PROVIDERS: Anesthesiology; PCP Family Medicine; Referring Provider Urology; Visit Provider Urology
PROC: 0T7B8ZZ Dilation of Bladder, Via Natural or Artificial Opening Endoscopic (ICD-10-PCS; CPT 52000; principal; 2025-04-30 08:30)
DX: N40.1 Benign prostatic hyperplasia with lower urinary tract symptoms (principal); N13.8 Other obstructive and reflux uropathy; R33.8 Other retention of urine; I25.10 Atherosclerotic heart disease of native coronary artery without angina pectoris; E11.22 Type 2 diabetes mellitus with diabetic chronic kidney disease; N18.30 Chronic kidney disease, stage 3 unspecified; N35.814 Other anterior urethral stricture, male
CPT/HCPCS: 52000; 36415; 74420; 80053; 93005; A4217; A4649; J1580; J2250; J2405; J2704; J2765; J3010; J3490; J7120

== ENCOUNTER → 2025-05-09 | Outpatient (CLI) | payer OTHER, SELFPAY ==
[2025-05-09 13:26] LABS: Glucose Estimated Average 128 mg/dL (80-131); Hemoglobin A1C 6.1 % Hgb (4.8-6.0)
[2025-05-09 13:29] LABS: Alanine Aminotransferase < 7 U/L (10-49); Albumin, Serum 4.4 gm/dL (3.4-4.8); Albumin/Globulin Ratio 1.8 (1.2-2.2); Alkaline Phosphatase 60 U/L (46-116); Anion Gap 10 (7-16); Aspartate Amino Transferase 16 U/L (0-34); BUN/Creatinine Ratio 13 Ratio (12-20); Bilirubin,Total 0.4 mg/dL (0.3-1.2); Blood Urea Nitrogen 29 mg/dL (9-23); Calcium 9.5 mg/dL (8.3-10.6); Calcium (Corrected) 9.5 mg/dL (8.5-10.1); Carbon Dioxide 23.5 mMol/L (20.0-31.0); Chloride 108 mMol/L (98-107); Creatinine (Component) 2.2 mg/dL (0.6-1.3); Globulin 2.4 gm/dL (2.3-3.5); Glucose 115 mg/dL (74-106); Osmolality,Calculated 288 (275-295); Potassium 4.7 mMol/L (3.4-5.1); Sodium 141 mMol/L (136-145); Total Protein 6.8 gm/dL (5.7-8.2); eGFR 31 See Note
[2025-05-09 13:30] LABS: Creatinine MALB Rnd Ur 117 mg/dL (30-125); Microalbumin Creat Ratio 71 mg/gCrea (<30); Microalbumin, Random Urine 83 mg/L (0-300)
== END | disposition home or self-care (01) ==
LOC: COPL 11:54
PROVIDERS: PCP Family Medicine; Referring Provider Family Medicine; Visit Provider Family Medicine
DX: N39.0 Urinary tract infection, site not specified (principal); E11.22 Type 2 diabetes mellitus with diabetic chronic kidney disease; I12.9 Hypertensive chronic kidney disease with stage 1 through stage 4 chronic kidney disease, or unspecified chronic kidney disease; N18.9 Chronic kidney disease, unspecified; E78.2 Mixed hyperlipidemia; E66.01 Morbid (severe) obesity due to excess calories; E11.65 Type 2 diabetes mellitus with hyperglycemia
CPT/HCPCS: 36415; 80053; 82043; 82570; 83036

== ENCOUNTER → 2025-06-11 | Outpatient (BNVA) | payer OTHER, SELFPAY | END | disposition home or self-care (01) | PROVIDERS: PCP Family Medicine; Referring Provider Family Medicine; Visit Provider Student in an Organized Health Care Education/Training Program | DX: N35.919 Unspecified urethral stricture, male, unspecified site (principal); R33.9 Retention of urine, unspecified; I10 Essential (primary) hypertension; E66.9 Obesity, unspecified; Z68.30 Body mass index [BMI] 30.0-30.9, adult | CPT/HCPCS: 99212; G0463 ==

== ENCOUNTER → 2025-06-18 | Outpatient (CLI) | payer OTHER, SELFPAY ==
[2025-06-18 10:59] LABS: Basophils # (Auto) 0.1 Thou/mm3 (0.0-0.2); Basophils % (Auto) 1 % (0-2.5); Eosinophils # (Auto) 0.3 Thou/mm3 (0.0-0.5); Eosinophils % (Auto) 5 % (0-10); Hematocrit 41.0 % (41.0-53.0); Hemoglobin 12.7 g/dL (13.5-16.0); Immature Granulocytes Auto 0.04 Thou/mm3 (0.00-0.00); Lymphocytes # (Auto) 1.2 Thou/mm3 (1.0-4.8); Lymphocytes % (Auto) 21 % (10-50); Mean Corpuscular HGB Conc 31.0 g/dl (31.0-37.0); Mean Corpuscular Hemoglobin 26.3 pg (25.0-35.0); Mean Corpuscular Volume 85 fL (80-100); Monocytes # (Auto) 0.4 Thou/mm3 (0.0-0.8); Monocytes % (Auto) 6 % (0-12); Neutrophils # (Auto) 3.8 Thou/mm3 (1.8-7.7); Neutrophils % (Auto) 66 % (37-80); Nucleated Red Blood Cell # 0.00 Thou/mm3 (0.00-0.00); Nucleated Red Blood Cell % 0 /100 WBC (0); Platelet Count 100 Thou/mm3 (140-440); RDW Standard Deviation 45.1 fL (35.1-43.9); Red Blood Count 4.82 Miln/mm3 (4.50-5.90); White Blood Count 5.8 Thou/mm3 (3.8-10.6)
[2025-06-18 11:13] LABS: Albumin, Serum 4.3 gm/dL (3.4-4.8); Anion Gap 7 (7-16); BUN/Creatinine Ratio 13 Ratio (12-20); Blood Urea Nitrogen 25 mg/dL (9-23); Calcium 9.5 mg/dL (8.3-10.6); Calcium (Corrected) 9.5 mg/dL (8.5-10.1); Carbon Dioxide 24.6 mMol/L (20.0-31.0); Chloride 110 mMol/L (98-107); Creatinine (Component) 1.9 mg/dL (0.6-1.3); Glucose 125 mg/dL (74-106); Osmolality,Calculated 288 (275-295); Phosphorous 4.5 mg/dL (2.4-5.1); Potassium 4.9 mMol/L (3.4-5.1); Sodium 142 mMol/L (136-145); eGFR 37 See Note
[2025-06-18 11:18] LABS: Vitamin D 25 Hydroxy Total 41.2 ng/mL (7.3-40.2)
== END | disposition home or self-care (01) ==
LOC: COPL 10:25
PROVIDERS: PCP Family Medicine; Referring Provider Internal Medicine; Visit Provider Internal Medicine
DX: I12.9 Hypertensive chronic kidney disease with stage 1 through stage 4 chronic kidney disease, or unspecified chronic kidney disease (principal); E11.22 Type 2 diabetes mellitus with diabetic chronic kidney disease; N18.32 Chronic kidney disease, stage 3b; E11.65 Type 2 diabetes mellitus with hyperglycemia; R80.9 Proteinuria, unspecified; E55.9 Vitamin D deficiency, unspecified
CPT/HCPCS: 36415; 80069; 82306; 85025

== ENCOUNTER → 2025-07-29 | Outpatient (CLI) | payer OTHER, SELFPAY ==
--- NOTE | 2025-07-29 15:06 | XR_ITS ---
EXAMINATION: PA lateral chest 2 views TECHNIQUE: Upright PA lateral chest 2 views Date and time: July 29, 2025, 1521 hours, comparison November 03, 2023 INDICATIONS: Preop FINDINGS: Significant hyperexpansion Scarring in both lungs No lobar pneumonia or pulmonary edema Normal heart size IMPRESSION: COPD No pneumonia or pulmonary edema
[2025-07-29 16:10] LABS: Collection Type, Urine Clean Catch
[2025-07-29 16:33] LABS: Basophils # (Auto) 0.1 Thou/mm3 (0.0-0.2); Basophils % (Auto) 1 % (0-2.5); Eosinophils # (Auto) 0.6 Thou/mm3 (0.0-0.5); Eosinophils % (Auto) 8 % (0-10); Hematocrit 41.8 % (41.0-53.0); Hemoglobin 13.2 g/dL (13.5-16.0); Immature Granulocytes Auto 0.04 Thou/mm3 (0.00-0.00); Lymphocytes # (Auto) 1.0 Thou/mm3 (1.0-4.8); Lymphocytes % (Auto) 14 % (10-50); Mean Corpuscular HGB Conc 31.6 g/dl (31.0-37.0); Mean Corpuscular Hemoglobin 27.1 pg (25.0-35.0); Mean Corpuscular Volume 86 fL (80-100); Monocytes # (Auto) 0.4 Thou/mm3 (0.0-0.8); Monocytes % (Auto) 5 % (0-12); Neutrophils # (Auto) 5.2 Thou/mm3 (1.8-7.7); Neutrophils % (Auto) 71 % (37-80); Nucleated Red Blood Cell # 0.00 Thou/mm3 (0.00-0.00); Nucleated Red Blood Cell % 0 /100 WBC (0); Platelet Count 129 Thou/mm3 (140-440); RDW Standard Deviation 46.3 fL (35.1-43.9); Red Blood Count 4.87 Miln/mm3 (4.50-5.90); White Blood Count 7.3 Thou/mm3 (3.8-10.6)
[2025-07-29 16:43] LABS: Glucose Estimated Average 131 mg/dL (80-131); Hemoglobin A1C 6.2 % Hgb (4.8-6.0)
[2025-07-29 16:48] LABS: Bacteria,Urine Rare; Bilirubin,Urine Negative (Negative); Blood,Urine 1+ (Negative); Clarity,Urine Clear (Clear/Hazy); Color,Urine Lt-Yellow (Lt Yel-Yel); Glucose, Urine Negative (Negative); Ketones,Urine Negative (Negative); Leukocyte Esterase,Urine Positive (Negative); Nitrite,Urine Negative (Negative); PH,Urine 6.0 (5.0-7.0); Protein,Urine 1+ (Neg - Trace); RBC,Urine 14 /hpf (0-3); Specific Gravity,Urine 1.015 (1.001-1.035); Squamous Epithelial Cell,Urine 1 /hpf (0-5); Urobilinogen,Urine Negative mg/dL (0.0-1.0); WBC,Urine 42 /hpf (0-5)
[2025-07-29 16:49] LABS: Alanine Aminotransferase 15 U/L (10-49); Albumin, Serum 4.3 gm/dL (3.4-4.8); Albumin/Globulin Ratio 2.0 (1.2-2.2); Alkaline Phosphatase 82 U/L (46-116); Anion Gap 10 (7-16); Aspartate Amino Transferase 17 U/L (0-34); BUN/Creatinine Ratio 15 Ratio (12-20); Bilirubin,Total 0.4 mg/dL (0.3-1.2); Blood Urea Nitrogen 29 mg/dL (9-23); Calcium 9.1 mg/dL (8.3-10.6); Calcium (Corrected) 9.1 mg/dL (8.5-10.1); Carbon Dioxide 26.7 mMol/L (20.0-31.0); Chloride 106 mMol/L (98-107); Creatinine (Component) 1.9 mg/dL (0.6-1.3); Globulin 2.2 gm/dL (2.3-3.5); Glucose 129 mg/dL (74-106); Osmolality,Calculated 292 (275-295); Potassium 4.9 mMol/L (3.4-5.1); Sodium 143 mMol/L (136-145); Total Protein 6.5 gm/dL (5.7-8.2); eGFR 37 See Note
[2025-07-29 16:52] LABS: INR 1.0 (0.9-1.3); Partial Thromboplastin Time 29.3 Seconds (22.0-36.0); Prothrombin Time 10.9 Seconds (9.0-12.2)
[2025-07-29 16:56] LABS: Culture Indicated,Urine Yes
== END | disposition home or self-care (01) ==
LOC: CDIM 14:48 → COPL 15:39
PROVIDERS: PCP Family Medicine; Referring Provider Physician Assistant; Visit Provider Radiology Diagnostic Radiology
DX: Z01.818 Encounter for other preprocedural examination (principal); J44.9 Chronic obstructive pulmonary disease, unspecified
CPT/HCPCS: 36415; 71046; 80053; 81001; 83036; 85025; 85610; 85730; 87077; 87086; 87186